=== PATIENT | female | born 1950 | race Caucasian/White ===

== ENCOUNTER → 2016-09-23 | Outpatient (CLI) | payer MEDICARE ==
--- NOTE | 2016-09-23 10:43 | WWHP ---
DATE OF SERVICE: 09/23/2016 CHIEF COMPLAINT: The patient is here for her routine gynecologic exam and mammogram. HPI: This is a 66-year-old G0 with an LMP of 1993. The patient states it has been about 4 years since her last pelvic exam and mammogram. She is without gynecologic complaints and denies any postmenopausal bleeding. PAST MEDICAL HISTORY: Coronary artery disease, chronic hypertension, type 2 diabetes, elevated cholesterol and hypothyroidism. Dr. Stevenson is her primary care physician. MEDICATIONS: 1. Clopidogrel 75 mg daily. 2. Lisinopril 10 mg b.i.d. 3. Metoprolol 25 mg b.i.d. 4. Metformin 1000 mg b.i.d. 5. Glimepiride 2 mg b.i.d. 6. Levothyroxine 75 mcg daily. 7. Atorvastatin 80 mg q.h.s. Allergies to PENICILLIN, which caused a rash. PAST SURGICAL HISTORY: Thyroidectomy 2012, cardiac, stent placement in 2014, cataract surgery 2011, colonoscopy 2004, tonsillectomy at age 21. 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 SOCIAL HISTORY: She quit smoking in her 40s. She has 0 to 1 alcoholic drink per month and denies drug use. 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 FAMILY HISTORY: Sister was diagnosed with breast cancer at age 62 and she also had an DE. Mother and brother have diabetes. Brother had an DE. REVIEW OF SYSTEMS: Weight has been stable. RESPIRATORY: She is getting over a cold. She denies cardiac or GI problems. She also denies maltreatment or falling. : She denies any significant problems with urinary leakage. PHYSICAL EXAM: Blood pressure 137/81. Height 5 feet 2 inches. Weight 162 pounds. Temperature 97.5, pulse 80. This is a well-developed, well-nourished white female who is alert and oriented x3 in no acute distress. HEENT is within normal limits. NECK: Supple without mass or thyromegaly. CHEST AND LUNGS: Clear to auscultation. HEART: Regular rate and rhythm. Breasts are without mass or discharge. Axillary exam is negative for adenopathy. BACK: Negative for CVA tenderness. ABDOMEN: Soft, nontender, without palpable masses. PELVIC EXAM: External genitalia reveals mild to moderate atrophy without lesions. Cervix and vagina reveal moderate atrophy without lesions. There is no unusual discharge. There is no evidence of prolapse. The uterus is midposition, nongravid size and nontender. There are no palpable adnexal masses or tenderness. Rectovaginal exam is negative for mass or tenderness and is negative for occult blood. EXTREMITIES: Nontender. IMPRESSION: 1. A 66-year-old menopausal female with normal gynecologic exam. 2. Family history of breast cancer. PLAN: 1. Pap smear was performed. 2. Self breast examination was discussed with the patient. 3. Mammogram will be done today. I have stressed the importance of yearly mammograms especially with her family history. 4. Screening colonoscopy was recommended and she states she will see Dr. Giles for this. 5. Osteoporosis prevention was discussed. I have recommended bone density screening since her last one was in 2003, which was normal. She states she would like to do this next year. 6. The patient is declining flu shots. 7. She will return in one year.
--- NOTE | 2016-09-24 11:13 | MM ---
Reason for exam: screening (asymptomatic). Last mammogram was performed 4 years ago. History: Patient is postmenopausal and is nulliparous. Took hormonal contraceptives for 1 year 10 months. Took estrogen for 1 year. Physical Findings: A clinical breast exam by your physician is recommended on an annual basis and results should be correlated with mammographic findings. MG Screening Mammo w CAD Bilateral CC and MLO view(s) were taken. Prior study comparison: September 13, 2012, bilateral digital screening mammo w/CAD. June 11, 2009, bilateral digital screening mammogram. There are scattered fibroglandular densities. No significant changes when compared with prior studies. ASSESSMENT: Benign, BI-RAD 2 RECOMMENDATION: Routine screening mammogram of both breasts in 1 year.
== END | disposition home or self-care (01) ==
LOC: WWCWWP 07:57
PROVIDERS: ATTEND Obstetrics & Gynecology
DX: Z12.31 Encounter for screening mammogram for malignant neoplasm of breast (principal)

== ENCOUNTER → 2016-12-29 | Outpatient (CLI) | payer MEDICARE ==
[2016-12-29 10:45] LABS: ALT 37 U/L (9-52); AST 21 U/L (14-36); Alkaline Phosphatase 72 U/L (38-126); Anion Gap 9 mmol/L; Blood Urea Nitrogen 19 mg/dL (7-17); Calcium 9.1 mg/dL (8.4-10.2); Carbon Dioxide 29 mmol/L (22-30); Chloride 103 mmol/L (98-107); Cholesterol 134 mg/dL (<200); Glucose 213 mg/dL (74-99); HDL Cholesterol 37 mg/dL (40-60); Non-African American GFR(MDRD) >60 (>60 ml/min/1.73 sqM); Potassium 4.5 mmol/L (3.5-5.1); Sodium 141 mmol/L (137-145); Total Bilirubin 0.8 mg/dL (0.2-1.3); Total Protein 6.4 g/dL (6.3-8.2); Triglycerides 160 mg/dL (<150)
[2016-12-29 11:45] LABS: Hemoglobin A1C 7.8 % (4.2-6.1)
== END | disposition home or self-care (01) ==
LOC: LABWHC1 08:01
PROVIDERS: ATTEND Internal Medicine Interventional Cardiology
DX: E78.2 Mixed hyperlipidemia (principal); E03.9 Hypothyroidism, unspecified; E11.9 Type 2 diabetes mellitus without complications
CPT/HCPCS: 36415; 80053; 80061; 83036; 84439; 84443

== ENCOUNTER → 2018-04-16 | Outpatient (CLI) | payer MEDICARE ==
[2018-04-16 09:37] LABS: Appearance,Urine Cloudy (Clear); Bacteria,Urine Rare /hpf; Bilirubin,Urine Negative (Negative); Blood,Urine Negative (Negative); Color,Urine Yellow; Glucose,Urine (UA) Trace (Negative); Ketones,Urine Negative (Negative); Leukocyte Esterase,Urine Moderate (Negative); Mucus,Urine Occasional /hpf; Nitrite,Urine Negative (Negative); Protein,Urine Trace (Negative); RBC,Urine 4 /hpf (0-5); Specific Gravity,Urine 1.022 (1.001-1.035); Squamous Epithelial Cell,Urine 4 /hpf (0-4); Urobilinogen,Urine <2.0 mg/dL (<2.0); WBC,Urine 8 /hpf (0-5)
[2018-04-16 09:52] LABS: Albumin 3.9 g/dL (3.5-5.0); Calcium 8.9 mg/dL (8.4-10.2); Potassium 4.1 mmol/L (3.5-5.1); Total Bilirubin 0.7 mg/dL (0.2-1.3); Total Protein 6.4 g/dL (6.3-8.2)
[2018-04-16 17:46] LABS: Hemoglobin A1C 9.9 % (4.0-6.0)
== END | disposition home or self-care (01) ==
LOC: LABWHC1 09:06
PROVIDERS: ATTEND Internal Medicine
DX: E11.9 Type 2 diabetes mellitus without complications (principal); I10 Essential (primary) hypertension; E78.2 Mixed hyperlipidemia
CPT/HCPCS: 36415; 80053; 80061; 81001; 82043; 82570; 83036

== ENCOUNTER → 2018-05-16 | Outpatient (CLI) | payer MEDICARE ==
[2018-05-16 09:15] LABS: ALT 33 U/L (9-52); AST 24 U/L (14-36); Cholesterol 146 mg/dL (<200); HDL Cholesterol 37 mg/dL (40-60); LDL Cholesterol,Calculated 81 mg/dL (0-99); Triglycerides 139 mg/dL (<150)
== END | disposition home or self-care (01) ==
LOC: LABWHC1 07:45
PROVIDERS: ATTEND Internal Medicine Interventional Cardiology
DX: E78.2 Mixed hyperlipidemia (principal)
CPT/HCPCS: 36415; 80061; 84450; 84460

== ENCOUNTER 2018-05-25 06:32 | Day surgery (SDC) | payer MEDICARE ==
[2018-05-24 08:26] VITALS: BMI 29.2
[~2018-05-25 06:32] MED LIST: ALPRAZolam 0.25 MG TAB PO PRN; ALPRAZolam 0.5 MG TAB PO PRN; NITROGLYCERIN SL TABS 0.4 MG TAB SUBLINGUAL PRN; SODIUM CHLORIDE 0.9% 1,000 ML in EMPTY BAG 1 BAG IV ONE
[2018-05-25] MEDS ORDERED: ASPIRIN 325 MG TAB PO ONE (07:00)
[2018-05-25 07:15] VITALS: RESP 16; TEMP 98.3
[2018-05-25] MEDS ORDERED: VERAPAMIL 2.5 MG/ML 2 ML AMP ONE (07:18)
[2018-05-25] MEDS ORDERED: LIDOCAINE 1% INJ 10MG/ML (20 ML MDV) ONE (07:18)
[2018-05-25] MEDS ORDERED: fentaNYL (PF) 50 MCG/ML 2 ML AMP ONE (07:18)
[2018-05-25 07:24] LABS: Glucose,Whole Blood 291 mg/dL (75-99)
[2018-05-25] MEDS ORDERED: amLODIPine 5 MG TAB PO STA (07:26)
[2018-05-25] MEDS ORDERED: INSULIN ASPART 100 UNIT/ML 1 ML 10 ML VIAL SQ SCH (07:30)
[2018-05-25 07:35] LABS: Basophils # (A) 0.1 k/uL (0-0.2); Basophils % (A) 1 %; Eosinophils # (A) 0.3 k/uL (0-0.7); Eosinophils % (A) 4 %; HCT 42.8 % (34.0-46.0); HGB 14.5 gm/dL (11.4-16.0); Lymphocytes # (A) 2.4 k/uL (1.0-4.8); Lymphocytes % (A) 30 %; MCH 30.4 pg (25.0-35.0); MCHC 33.8 g/dL (31.0-37.0); Mean Platelet Volume 8.5; Monocytes # (A) 0.5 k/uL (0-1.0); Monocytes % (A) 6 %; Neutrophils # (A) 4.4 k/uL (1.3-7.7); Neutrophils % (A) 56 %; Platelet Count 298 k/uL (150-450); RBC 4.76 m/uL (3.80-5.40); RDW 12.7 % (11.5-15.5); WBC 7.8 k/uL (3.8-10.6)
[2018-05-25] MEDS ORDERED: amLODIPine 5 MG TAB PO ONE (07:40)
[2018-05-25 07:42] LABS: Anion Gap 8 mmol/L; Blood Urea Nitrogen 17 mg/dL (7-17); Carbon Dioxide 28 mmol/L (22-30); Chloride 102 mmol/L (98-107); Glucose 295 mg/dL (74-99); Potassium 4.4 mmol/L (3.5-5.1); Sodium 138 mmol/L (137-145)
[2018-05-25] MEDS ORDERED: fentaNYL (PF) 50 MCG/ML 2 ML AMP IVP ONE (07:49)
[2018-05-25] MEDS ORDERED: LIDOCAINE 1% INJ 10MG/ML (20 ML MDV) SQ ONE (07:52)
[2018-05-25] MEDS ORDERED: MIDAZOLAM 2 MG/2 ML VIAL ONE (07:54)
[2018-05-25] MEDS ORDERED: HEPARIN SODIUM 1,000 UN/ML (10ML VL) ONE (07:54)
[2018-05-25] MEDS: VERAPAMIL SYRINGE (5 MG/10 ML) INTRAARTER ONE ×2 (07:54→08:07)
[2018-05-25] MEDS ORDERED: MIDAZOLAM 2 MG/2 ML VIAL IVP ONE (07:56)
[2018-05-25] MEDS ORDERED: NITROGLYCERIN SL TABS 0.4 MG TAB SUBLINGUAL ONE ×2 (07:57→08:00)
[2018-05-25] MEDS ORDERED: IOPAMIDOL-370 125ML BTL INJ ONE (08:13)
[2018-05-25] MEDS ORDERED: RX INFO: IV CONTRAST WAS GIVEN 1 EACH MISC MISCELLANE PRN (08:32)
[2018-05-25] MEDS ORDERED: SODIUM CHLORIDE 0.9% 1,000 ML IV SCH (08:45)
--- NOTE | 2018-05-25 08:51 | CC ---
CARDIAC CATHETERIZATION REPORT Ms. Daniels is a 68-year-old female with known history of hypertension, hyperlipidemia, diabetes mellitus, history of coronary artery disease status post stenting of the right coronary artery. At that time, had a severe cardiomyopathy who recently had an abnormal myocardial perfusion imaging. In view of that, recommendation made regarding cardiac catheterization. The procedures, risks and complication were discussed with the patient who is in full understanding and agreement. 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 Using Xylocaine anesthesia and Seldinger technique, a 6-Urdu sheath was introduced in the right radial artery. Selective right and left angiography performed using 5-Urdu 3.5 bend right and left Tj catheter. Multiple views of the coronary artery including hemiaxial views were obtained. Following that, a 4-Urdu tight pigtail catheter was introduced into the left ventricle and a 30 degree PLAZA view of the left ventricle was obtained. Following that, catheter and sheaths were removed. Hemostasis was obtained with deployment of a TR band. There was no immediate complication. Patient was returned to her room in stable condition. Of note, patient received 4000 units of intravenous heparin as well as intra-arterial verapamil. FINDINGS: LEFT MAIN: This is a large-sized vessel, bifurcating into left circumflex, left anterior descending artery. Left main coronary artery is without any obstructive coronary artery disease. LEFT ANTERIOR DESCENDING ARTERY: This is a large-sized vessel reaching toward the apex with a wraparound apex segment, giving rise to a moderately-sized diagonal branch. After the takeoff of the diagonal branch, there is a 20% plaque. The rest of the vessel has no high-grade stenosis. LEFT CIRCUMFLEX: This is a nondominant vessel, giving rise to 2 obtuse marginal branches, the first one is large in caliber. The left circumflex as well as branches have no evidence of obstructive coronary artery disease. RIGHT CORONARY ARTERY: This is a large dominant vessel, bifurcating into PDA and posterolateral segment and branches. The stented segment is patent with no evidence of free stenosis. LEFT VENTRICULOGRAM: Left ventriculogram is performed in 30 degree PLAZA view and revealed mild mid inferior wall hypokinesis. Ejection fraction is 50%. There was no significant mitral regurgitation. HEMODYNAMICS: There was no gradient across the aortic valve. The left ventricle end- diastolic pressure was 16 to 18 mmHg. CONCLUSION: 1. Mild intimal disease involving the mid left anterior descending artery. 2. Minimally impaired left ventricular systolic function. RECOMMENDATION: In view of finding anatomy, I recommend to continue medical therapy with aggressive coronary risk modifications being initiated. Those findings and recommendation were discussed with the patient and she is in full understanding and agreement. Duration of procedure is 25 minutes. MADELINE / ZULAY: [id number] /
[2018-05-25] MEDS ORDERED: LEVOTHYROXINE 75 MCG TAB PO SCH (09:00)
[2018-05-25] MEDS ORDERED: MULTIVITAMINS, THERA 1 EACH TAB PO SCH (09:00)
[2018-05-25] MEDS ORDERED: LISINOPRIL 5 MG TAB PO SCH (09:00)
[2018-05-25] MEDS ORDERED: ASPIRIN 325 MG TAB PO SCH (09:00)
[2018-05-25] MEDS ORDERED: NON-FORMULARY DRUG (Krill Oil [Krill Oil] 500 MG) PO SCH (09:00)
[2018-05-25] MEDS ORDERED: METOPROLOL TARTRATE 25 MG TAB PO SCH (09:00)
[2018-05-25 12:38] VITALS: BP 142/75; PULSE 60
[2018-05-25] MEDS ORDERED: ATORVASTATIN 80 MG TAB PO SCH (21:00)
== END 2018-05-25 13:35 | disposition home or self-care (01) ==
LOC: CATHCVL 06:32
PROVIDERS: ATTEND Internal Medicine Interventional Cardiology
DX: I25.10 Atherosclerotic heart disease of native coronary artery without angina pectoris (principal); E11.9 Type 2 diabetes mellitus without complications; I10 Essential (primary) hypertension; E78.2 Mixed hyperlipidemia; Z95.5 Presence of coronary angioplasty implant and graft; Z82.49 Family history of ischemic heart disease and other diseases of the circulatory system; Z88.0 Allergy status to penicillin; Z79.82 Long term (current) use of aspirin; Z79.899 Other long term (current) drug therapy; Z79.84 Long term (current) use of oral hypoglycemic drugs; Z79.890 Hormone replacement therapy; Z87.891 Personal history of nicotine dependence
CPT/HCPCS: 93458; 80048; 85025; J2250; J2001; J3010; J1644; Q9967

== ENCOUNTER → 2018-10-29 | Outpatient (CLI) | payer MEDICARE ==
[2018-10-29 16:30] LABS: Albumin 3.9 g/dL (3.80-4.90); Albumin/Globulin Ratio 1.95 (1.60-3.17); Anion Gap 7.7 mmol/L (4.00-12.00); Calcium 9.1 mg/dL (8.7-10.3); Carbon Dioxide 30.3 mmol/L (21.6-31.8); LDL Cholesterol,Calculated 100.2 mg/dL (0.0-131.0); Potassium 4.5 mmol/L (3.5-5.5); Total Bilirubin 0.8 mg/dL (0.2-1.2); Total Protein 5.9 g/dL (6.2-8.2); VLDL Calculation 22.8 mg/dL (5.00-40.00)
[2018-10-29 17:56] LABS: Hemoglobin A1C 10.6 % (4.0-6.0)
== END ==
LOC: LABWHC1 09:04
PROVIDERS: ATTEND Internal Medicine
DX: E11.9 Type 2 diabetes mellitus without complications (principal); E78.5 Hyperlipidemia, unspecified; E03.9 Hypothyroidism, unspecified; E78.2 Mixed hyperlipidemia
CPT/HCPCS: 36415; 80053; 80061; 82043; 82570; 83036; 84439; 84443

== ENCOUNTER → 2019-04-11 | Outpatient (CLI) | payer MEDICARE ==
[2019-04-11 09:24] LABS: HCT 42.6 % (34.0-46.0); HGB 14.7 gm/dL (11.4-16.0); MCH 31.2 pg (25.0-35.0); MCHC 34.5 g/dL (31.0-37.0); MCV 90.4 fL (80.0-100.0); Mean Platelet Volume 7.9; Platelet Count 326 k/uL (150-450); RBC 4.71 m/uL (3.80-5.40); RDW 12.9 % (11.5-15.5); WBC 8.4 k/uL (3.8-10.6)
[2019-04-11 09:29] LABS: Appearance,Urine Clear (Clear); Bacteria,Urine Occasional /hpf; Bilirubin,Urine Negative (Negative); Blood,Urine Negative (Negative); Color,Urine Yellow; Glucose,Urine (UA) Trace (Negative); Ketones,Urine Negative (Negative); Leukocyte Esterase,Urine Moderate (Negative); Mucus,Urine Rare /hpf; Nitrite,Urine Negative (Negative); Protein,Urine Negative (Negative); RBC,Urine 1 /hpf (0-5); Specific Gravity,Urine 1.007 (1.001-1.035); Squamous Epithelial Cell,Urine 1 /hpf (0-4); Urobilinogen,Urine <2.0 mg/dL (<2.0); WBC,Urine 6 /hpf (0-5)
[2019-04-11 18:30] LABS: African American GFR (CKD) 75.6 (60.0-200.0); Albumin 4.2 g/dL (3.80-4.90); Albumin/Globulin Ratio 2.47 (1.60-3.17); Anion Gap 10.2 mmol/L (4.00-12.00); BUN/Creat Ratio 16.67 Ratio (12.00-20.00); Carbon Dioxide 28.8 mmol/L (21.6-31.8); Chol/HDL Ratio 2.55; Globulin 1.7 g/dL (1.6-3.3); Non-African American GFR(CKD) 65.2 (60.0-200.0); Potassium 4.9 mmol/L (3.5-5.5); Total Bilirubin 0.9 mg/dL (0.2-1.2); Total Protein 5.9 g/dL (6.2-8.2)
[2019-04-11 18:36] LABS: T4, Free (Free Thyroxine) 1.4 ng/dL (0.80-1.80)
[2019-04-11 19:06] LABS: Hemoglobin A1C 9.7 % (4.0-6.0)
[2019-04-11 21:03] LABS: Urine Creatinine 35.7 mg/dL
== END | disposition home or self-care (01) ==
LOC: LABWHC1 08:40
PROVIDERS: ATTEND Internal Medicine
DX: E78.2 Mixed hyperlipidemia (principal); E11.9 Type 2 diabetes mellitus without complications; E03.9 Hypothyroidism, unspecified
CPT/HCPCS: 36415; 80053; 80061; 81001; 82043; 82570; 83036; 84439; 84443; 85027

== ENCOUNTER → 2019-05-02 | Outpatient (CLI) | payer MEDICARE ==
--- NOTE | 2019-05-02 16:12 | BD ---
EXAMINATION TYPE: Axial Bone Density DATE OF EXAM: 05/02/2019 COMPARISON: 2003 CLINICAL HISTORY: Z 78.0 Height: 5 FT 1 1/4 IN Weight: 159 FRAX RISK QUESTIONS: Secondary Osteoporosis: 3. Menopause before 45: AGE 44 RISK FACTORS HISTORY OF: Active: YES Postmenopausal woman: AGE 44 MEDICATIONS: Thyroid Medications: YES Which medication: LEVOTHYROXINE How Lon YEARS Additional Medications: LEVOTHYROXINE, BLOOD PRESSURE MEDS ,CHOLESTEROL MEDS, Additional History: THYROID REMOVED FOR GOITER, HEART STENT EXAM MEASUREMENTS: Bone mineral densitometry was performed using the Quart[employer] System. Bone mineral density as measured about the Lumbar spine is: ----- L1-L4(G/cm2): 1.351 T Score Values are as follows: ----- L2: 0.7 ----- L3: 2.4 ----- L4: 2.4 ----- L1-L4: 1.4 Bone mineral density has: INCREASED 4.0 % since study of: 2003 Bone mineral density about the R hip (g/cm2): 0.853 Bone mineral density about the L hip (g/cm2): 0.869 T Score values are as follows: -----R Neck: -1.3 -----L Neck: -1.2 -----R Total: -0.5 -----L Total: -0.4 Bone mineral density has: DECREASED -12.4 % since study of: 2003 IMPRESSION: Osteopenia (T Score between -2.5 and -1). There is slightly increased risk of fracture and the patient may be considered for treatment. Re-Screen 2-5 years. NOTE: T-SCORE=SD OF THE YOUNG ADULT MEAN.
--- NOTE | 2019-05-04 09:30 | MM ---
Reason for exam: screening (asymptomatic). Last mammogram was performed 2 years and 7 months ago. History: Patient is postmenopausal and is nulliparous. Family history of breast cancer in sister at age 61. Took hormonal contraceptives for 1 year 10 months. Took estrogen for 1 year. Physical Findings: A clinical breast exam by your physician is recommended on an annual basis and results should be correlated with mammographic findings. MG 3D Screening Mammo W/Cad Bilateral CC and MLO view(s) were taken. Prior study comparison: September 23, 2016, bilateral MG screening mammo w CAD. The breast tissue is heterogeneously dense. This may lower the sensitivity of mammography. There is chronic nodularity in the left breast. No significant changes when compared with prior studies. ASSESSMENT: Benign, BI-RAD 2 RECOMMENDATION: Routine screening mammogram of both breasts in 1 year.
== END | disposition home or self-care (01) ==
LOC: RADMAMWWP 14:39
PROVIDERS: ATTEND Internal Medicine
DX: Z12.31 Encounter for screening mammogram for malignant neoplasm of breast (principal); M85.80 Other specified disorders of bone density and structure, unspecified site; Z78.0 Asymptomatic menopausal state
CPT/HCPCS: 77063; 77067; 77080

== ENCOUNTER → 2021-06-11 | Outpatient (CLI) | payer MEDICARE ==
[2021-06-11 11:28] VITALS: BP 199/79; PULSE 74; RESP 18; TEMP 98.2
--- NOTE | 2021-06-11 12:43 | P.HPOB ---
History of Present Illness H&P Date: 06/11/21 Chief Complaint: The patient is here for her routine gynecologic exam and ma mmogram. This is a 71-year-old G0 with an LMP of 1993. The patient is without gynecologic complaints and denies any postmenopausal bleeding. Review of Systems She has lost about 8 pounds over the past 4 years. She denies respiratory, cardiac and G.I. problems. She denies maltreatment or problems with falling. 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 History of Any Multi-Drug Resistant Organisms: None Reported Past Surgical History: Adenoidectomy, Tonsillectomy Additional Past Surgical History / Comment(s): THROIDECTOMY, DG CATARACTS SX , LASIK LT EYE. Cardiac stent placed in 2014. COLONOSCOPY 2018(next after 10yr) Past Anesthesia/Blood Transfusion Reactions: Previous Problems w/ Anesthesia Additional Past Anesthesia/Blood Transfusion Reaction / Comment(s): TOOK LONG TIME TO WAKE UP Past Psychological History: No Psychological Hx Reported Smoking Status: Never smoker Past Alcohol Use History: Rare (1 or 2 per year) Additional Past Alcohol Use History / Comment(s): STARTED SMOKING AT AGE 18 QUIT AGE 44 USED TO SMOKE 1 PPD Past Drug Use History: None Reported Additional History: She has been a since 2019. 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 - Past Family History Father Family Medical History: Unable to Obtain Mother Family Medical History: Congestive Heart Failure (CHF), Myocardial Infarction ([place]) Sister(s) Family Medical History: Cancer Additional Family Medical History / Comment(s): Breast cancer. Brother(s) Family Medical History: Myocardial Infarction ([place]) Medications and Allergies Home Medications Medication Instructions Recorded Confirmed Type Krill Oil 500 mg PO DAILY 09/17/14 06/11/21 History Levothyroxine Sodium [Synthroid] 75 mcg PO DAILY 09/17/14 06/11/21 History Multivitamins, Thera [Multivitamin] 1 each PO DAILY 09/17/14 06/11/21 History metFORMIN HCL [Glucophage] 1,000 mg PO BID 09/17/14 06/11/21 History Aspirin 325 mg PO DAILY #100 tab 09/20/14 06/11/21 Rx Atorvastatin [Lipitor] 80 mg PO HS #30 tab 09/20/14 06/11/21 Rx Metoprolol Tartrate [Lopressor] 25 mg PO BID #60 tab 09/20/14 06/11/21 Rx lisinopriL [Zestril] 5 mg PO BID 05/25/18 06/11/21 History Ezetimibe [Zetia] 10 mg PO DAILY 06/11/21 06/11/21 History Glimepiride [Amaryl] 2 mg PO AC-BRKFST 06/11/21 06/11/21 History Ultra Eye Support 1 tab PO DAILY 06/11/21 06/11/21 History Allergies Allergy/AdvReac Type Severity Reaction Status Date / Time Penicillins Allergy Rash/Hives Verified 06/11/21 11:28 Exam Vital Signs Temp Pulse Resp BP Pulse Ox 06/11/21 11:22 98.2 F 74 18 199/79 98 Intake and Output 06/10/21 06/11/21 06/11/21 22:59 06:59 14:59 Other: Weight 69.853 kg Repeat blood pressure in the left arm 158/78. Height 5 foot 1-1/2 inch, weight 154 pounds, BMI 28.6. This is a well-developed well-nourished white female who is alert and oriented times 3 in no acute distress. HEENT: Within normal limits. NECK: Supple without mass or thyromegaly. CHEST AND LUNGS: Clear to auscultation. HEART: Regular rate and rhythm. BREASTS: Are without mass or discharge. AXILLARY EXAM: Negative for adenopathy. BACK: Negative for CVA tenderness. ABDOMEN: Soft, nontender, without palpable masses. PELVIC EXAM: Normal external genitalia with moderate atrophy. Cervix and vagina appear normal with moderate atrophy. There is no unusual discharge. There is no evidence of prolapse. The uterus is midposition, nongravid size and nontender. There are no palpable adnexal masses or tenderness. RECTAL EXAM: Rectovaginal exam is negative for mass or tenderness and is negative for occult blood. EXTREMITIES: Nontender. IMPRESSION: 1. 71-year-old menopausal female with normal gynecologic exam. 2. Elevated blood pressure with history of chronic hypertension. PLAN: 1. Pap smear was performed. If this is negative, we will plan on discontinuing Pap smears. This would give us 3 negative Pap smears in the last 10 years. She has no history of cervical neoplasia. 2. Self breast awareness was discussed with the patient. We have also discussed symptoms associated with inflammatory breast cancer. 3. Screening mammogram will be done today. 4. Her elevated blood pressure was discussed with the patient. I have recommended that she check her own blood pressure on a regular basis at home. She will keep a log for her PCP. She will follow up with her PCP for blood pressure elevations. 5. Osteoporosis prevention was discussed. I have stressed the importance of adequate calcium, vitamin D and regular exercise. Recommended amounts of calcium and vitamin D were also discussed. It has been more than 5 years since her last bone density test. I have recommended that she redo the bone density testing and the order slip was given to the patient for this. 6. She did complete Covid vaccination series and plans to get a booster for this. She did receive her flu shot recently. 7. The patient was advised to return in 1-2 years for her well woman examination.
== END ==
LOC: WWCWWP 11:10
PROVIDERS: ATTEND Obstetrics & Gynecology
DX: Z12.31 Encounter for screening mammogram for malignant neoplasm of breast (principal); Z01.419 Encounter for gynecological examination (general) (routine) without abnormal findings; E03.9 Hypothyroidism, unspecified; E78.5 Hyperlipidemia, unspecified; I10 Essential (primary) hypertension; I25.10 Atherosclerotic heart disease of native coronary artery without angina pectoris; E11.9 Type 2 diabetes mellitus without complications; Z79.82 Long term (current) use of aspirin; Z79.84 Long term (current) use of oral hypoglycemic drugs; Z88.0 Allergy status to penicillin; Z79.899 Other long term (current) drug therapy
CPT/HCPCS: 77063; 77067

== ENCOUNTER → 2022-06-16 | Outpatient (CLI) | payer MEDICARE ==
[2022-06-16 14:46] VITALS: PULSE 67; RESP 17; TEMP 97.8
[2022-06-16 14:51] VITALS: BP 210/91
--- NOTE | 2022-06-16 15:22 | P.HPOB ---
History of Present Illness H&P Date: 06/16/22 Chief Complaint: The patient is here for her routine gynecologic exam and ma mmogram. This is a 72-year-old G0 with an LMP of 1993. The patient is without gynecologic complaints and denies any postmenopausal bleeding. Review of Systems The patient has lost 3 pounds over the last year. She denies respiratory, cardiac, or G.I. problems. 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 History of Any Multi-Drug Resistant Organisms: None Reported Past Surgical History: Adenoidectomy, Tonsillectomy Additional Past Surgical History / Comment(s): THROIDECTOMY, DG CATARACTS SX , LASIK LT EYE. Cardiac stent placed in 2014. COLONOSCOPY 2018(next after 10yr) Past Anesthesia/Blood Transfusion Reactions: Previous Problems w/ Anesthesia Additional Past Anesthesia/Blood Transfusion Reaction / Comment(s): TOOK LONG TIME TO WAKE UP Past Psychological History: No Psychological Hx Reported Smoking Status: Former smoker Past Alcohol Use History: Rare (0-2 per year) Additional Past Alcohol Use History / Comment(s): STARTED SMOKING AT AGE 18 QUIT AGE 44 USED TO SMOKE 1 PPD Past Drug Use History: None Reported Additional History: She has been a since 2019. She is not sexually active. 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 - Past Family History Father Family Medical History: Unable to Obtain Mother Family Medical History: Congestive Heart Failure (CHF), Myocardial Infarction ([place]) Sister(s) Family Medical History: Cancer Additional Family Medical History / Comment(s): Breast cancer. Brother(s) Family Medical History: Myocardial Infarction ([place]) Medications and Allergies Home Medications Medication Instructions Recorded Confirmed Type Krill Oil 500 mg PO DAILY 09/17/14 06/16/22 History Levothyroxine Sodium [Synthroid] 75 mcg PO DAILY 09/17/14 06/16/22 History Multivitamins, Thera [Multivitamin] 1 each PO DAILY 09/17/14 06/16/22 History metFORMIN HCL [Glucophage] 1,000 mg PO BID 09/17/14 06/16/22 History Aspirin 325 mg PO DAILY #100 tab 09/20/14 06/16/22 Rx Atorvastatin [Lipitor] 80 mg PO HS #30 tab 09/20/14 06/16/22 Rx Metoprolol Tartrate [Lopressor] 25 mg PO BID #60 tab 09/20/14 06/16/22 Rx lisinopriL [Zestril] 5 mg PO BID 05/25/18 06/16/22 History Ezetimibe [Zetia] 10 mg PO DAILY 06/11/21 06/16/22 History Glimepiride [Amaryl] 2 mg PO AC-BRKFST 06/11/21 06/16/22 History Ultra Eye Support 1 tab PO DAILY 06/11/21 06/16/22 History Allergies Allergy/AdvReac Type Severity Reaction Status Date / Time Penicillins Allergy Rash/Hives Verified 06/16/22 14:38 Exam Vital Signs Temp Pulse Resp BP Pulse Ox 06/16/22 14:51 210/91 06/16/22 14:43 97.8 F 67 17 96 Intake and Output 06/16/22 06/16/22 06/16/22 06:59 14:59 22:59 Other: Weight 68.492 kg Height 5 foot 1 inch, weight 151 pounds, BMI 28.5. Repeat blood pressure from the left arm a 176/90. This is a well-developed well-nourished white female who is alert and oriented times 3 in no acute distress. HEENT: Within normal limits. NECK: Supple without mass or thyromegaly. CHEST AND LUNGS: Clear to auscultation. HEART: Regular rate and rhythm. BREASTS: Are without mass or discharge. AXILLARY EXAM: Negative for adenopathy. BACK: Negative for CVA tenderness. ABDOMEN: Soft, nontender, without palpable masses. PELVIC EXAM: Normal external genitalia with moderate atrophy. Cervix and vagina appear normal with moderate atrophy. There is no unusual discharge. There is no evidence of prolapse. The uterus is midposition, nongravid size and nontender. There are no palpable adnexal masses or tenderness. RECTAL EXAM: Rectovaginal exam is negative for mass or tenderness and is negative for occult blood. EXTREMITIES: Nontender. IMPRESSION: 1. 72-year-old menopausal female with normal gynecologic exam. 2. Elevated blood pressure with history of chronic hypertension. PLAN: 1. Pap smears have been discontinued. 2. Self breast awareness was discussed with the patient. We have also discussed symptoms associated with inflammatory breast cancer. 3. Screening mammogram will be done today. 4. Her significantly elevated blood pressure was discussed with the patient. She understands that uncontrolled hypertension in significantly increased risk for heart attack and stroke. I have recommended that she follow-up with her PCP and perinatal specialist regarding blood pressure elevations. Have also recommended regular pressure checks at home since she does have a blood pressure cuff. 5. Osteoporosis prevention was discussed. I have stressed the importance of adequate calcium, vitamin D and regular exercise. Recommended amounts of calcium and vitamin D were also discussed. Bone density test will be done today. 6. She has completed her Covid vaccination series and has received 2 boosters. 7. The patient was advised to return in 1-2 years for her well woman examination.
--- NOTE | 2022-06-17 16:05 | BD ---
EXAMINATION TYPE: Axial Bone Density DATE OF EXAM: 06/16/2022 COMPARISON: 05/02/2019 CLINICAL HISTORY: 72 years year old Female. ICD-10 CODE: Z78.0 POST-MENOPAUSAL W/O HRT Height: 61 Weight: 150 FRAX RISK QUESTIONS: Secondary Osteoporosis: 3. Menopause before 45: YES 44 RISK FACTORS HISTORY OF: Active: YES Postmenopausal woman: YES MEDICATIONS: Thyroid Medications: Which medication: Levothyroxine How Lon YRS Additional Medications: YES METFORMIN,ATORVASTATIN,GLIMEPIRIDE,EZETIMIBE,ASPIRIN 81MG, HBP, MULTI VIT EXAM MEASUREMENTS: Bone mineral densitometry was performed using the [employer] Software System. Bone mineral density as measured about the Lumbar spine is: ----- L1-L4(G/cm2): 1.406 T Score Values are as follows: ----- L1: 0.1 ----- L2: 0.6 ----- L3: 3.2 ----- L4: 3.1 ----- L1-L4: 1.9 Bone mineral density has: Increased 4.3% since study of: 05/02/2019 Bone mineral density about the R hip (g/cm2): 0.821 Bone mineral density about the L hip (g/cm2): 0.834 T Score values are as follows: -----R Neck: -1.6 -----L Neck: -1.5 -----R Total: -0.8 -----L Total: -0.8 Bone mineral density has: Decreased -5.0% since study of: 05/02/2019 FRAX%s: The graph provided illustrates a 10.6 chance for a major osteoporotic fx and a 1.8 chance for the hips probability for fx in 10 years time. IMPRESSION: Osteopenia (T Score between -2.5 and -1). There is slightly increased risk of fracture and the patient may be considered for treatment. Re-Screen 2-5 years. NOTE: T-SCORE=SD OF THE YOUNG ADULT MEAN.
--- NOTE | 2022-06-17 16:58 | MM ---
Reason for Exam: Screening (asymptomatic). Last screening mammogram was performed 12 month(s) ago. Patient History: Menarche at age 11. Patient has no children. Postmenopausal. Patient used Estrogen for 1 year. Hormonal Contraceptives for 1 year, 10 months. Sister had breast cancer, age 61. Risk Values: Sherita 5 year model risk: 3.8%. NCI Lifetime model risk: 9.7%. Prior Study Comparison: 09/23/2016 Bilateral Screening Mammogram, [facility]. 05/02/2019 Bilateral Screening Mammogram, [facility]. 06/11/2021 Bilateral Screening Mammogram, [facility]. Tissue Density: There are scattered fibroglandular densities. Findings: Analyzed By CAD. Pattern appears stable. Some chronic nodularity of the left breast 3:00 middle position. No suspicious groups of microcalcifications, spiculated or lobular masses, architectural distortion or other secondary signs of malignancy are mammographically apparent. Overall Assessment: Benign, BI-RAD 2 Management: Screening Mammogram of both breasts in 1 year. A negative mammogram report should not preclude additional follow up of suspicious palpable abnormalities. Patient should continue monthly self breast exam. A clinical breast exam by your physician is recommended on an annual basis and results should be correlated with mammographic findings. Electronically signed and approved by: Gregory Damon D.O. Radiologis
== END ==
LOC: WWCWWP 14:32
PROVIDERS: ATTEND Obstetrics & Gynecology
DX: Z01.419 Encounter for gynecological examination (general) (routine) without abnormal findings (principal); Z12.31 Encounter for screening mammogram for malignant neoplasm of breast; Z78.0 Asymptomatic menopausal state; I10 Essential (primary) hypertension; Z88.0 Allergy status to penicillin; Z87.891 Personal history of nicotine dependence
CPT/HCPCS: 77063; 77067; 77080

== ENCOUNTER → 2022-11-27 | Outpatient (CLI) | payer MEDICARE ==
[2022-11-27 15:34] LABS: ALT 23 U/L (8-44); AST 20 U/L (13-35); African American GFR (CKD) 72.8 (60.0-200.0); Albumin/Globulin Ratio 1.91 (1.60-3.17); Alkaline Phosphatase 62 U/L (41-126); BUN/Creat Ratio 16.87 Ratio (12.00-20.00); Blood Urea Nitrogen 15.4 mg/dL (9.0-27.0); Calcium 9.3 mg/dL (8.7-10.3); Carbon Dioxide 30.2 mmol/L (20.0-27.5); Chloride 101 mmol/L (96-109); Chol/HDL Ratio 2.52 Ratio; Globulin 2.1 g/dL (1.6-3.3); Glucose 182 mg/dL (70-110); LDL Cholesterol,Calculated 42.5 mg/dL (0.0-131.0); Non-African American GFR(CKD) 62.8 (60.0-200.0); Potassium 4.7 mmol/L (3.5-5.5); Sodium 140 mmol/L (135-145)
[2022-11-27 17:43] LABS: Urine Creatinine 27.3 mg/dL (28.0-217.0)
== END | disposition home or self-care (01) ==
LOC: LABWHC1 09:56
PROVIDERS: ATTEND Family Medicine
DX: I10 Essential (primary) hypertension (principal); E11.9 Type 2 diabetes mellitus without complications; E78.2 Mixed hyperlipidemia
CPT/HCPCS: 36415; 80053; 80061; 82043; 82570; 83036

== ENCOUNTER → 2023-06-19 | Outpatient (CLI) | payer MEDICARE ==
[2023-06-19 13:50] LABS: ALT 17 U/L (8-44); AST 19 U/L (13-35); BUN/Creat Ratio 17.89 Ratio (12.00-20.00); Blood Urea Nitrogen 16.1 mg/dL (9.0-27.0); Calcium 9.6 mg/dL (8.7-10.3); Carbon Dioxide 28.2 mmol/L (21.6-31.8); Chloride 99 mmol/L (96-109); Chol/HDL Ratio 3.45 Ratio; Glucose 145 mg/dL (70-110); LDL Cholesterol,Calculated 54.9 mg/dL (0.0-131.0); Potassium 4.6 mmol/L (3.5-5.5); Sodium 140 mmol/L (135-145)
== END | disposition home or self-care (01) ==
LOC: LABWHC1 08:27
PROVIDERS: ATTEND Family Medicine
DX: Z00.00 Encounter for general adult medical examination without abnormal findings (principal); E78.2 Mixed hyperlipidemia
CPT/HCPCS: 36415; 80048; 80061; 84443; 84450; 84460

== ENCOUNTER → 2023-06-22 | Outpatient (CLI) | payer MEDICARE | END | disposition home or self-care (01) | LOC: LABWHC1 14:59 | PROVIDERS: ATTEND Family Medicine | DX: Z00.00 Encounter for general adult medical examination without abnormal findings (principal) | CPT/HCPCS: 36415; 83036 ==

== ENCOUNTER → 2023-06-22 | Outpatient (CLI) | payer MEDICARE ==
[2023-06-22 08:49] VITALS: BP 192/77; PULSE 79; RESP 16; TEMP 97.9
--- NOTE | 2023-06-22 09:25 | P.HPOB ---
History of Present Illness H&P Date: 06/22/23 Chief Complaint: The patient is here for her routine gynecologic exam and ma mmogram. This is a 73-year-old G0 with an LMP of 1993. The patient is without gynecologic complaints. Review of Systems The patient has lost 6 pounds over the last year. Respiratory: She is getting over some sinus issues with cough. She denies cardiac or GI problems. 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 History of Any Multi-Drug Resistant Organisms: None Reported Past Surgical History: Adenoidectomy, Tonsillectomy Additional Past Surgical History / Comment(s): THROIDECTOMY, DG CATARACTS SX , LASIK LT EYE. Cardiac stent placed in 2014. COLONOSCOPY 2018(next after 10yr) Past Anesthesia/Blood Transfusion Reactions: Previous Problems w/ Anesthesia Additional Past Anesthesia/Blood Transfusion Reaction / Comment(s): TOOK LONG TIME TO WAKE UP Past Psychological History: No Psychological Hx Reported Smoking Status: Former smoker Past Alcohol Use History: Rare (0-2 drinks per year.) Additional Past Alcohol Use History / Comment(s): STARTED SMOKING AT AGE 18 QUIT AGE 44 USED TO SMOKE 1 PPD Past Drug Use History: None Reported Additional History: She has been a since 2019. She is not sexually active. 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 - Past Family History Father Family Medical History: Unable to Obtain Mother Family Medical History: Congestive Heart Failure (CHF), Myocardial Infarction ([place]) Sister(s) Family Medical History: Cancer Additional Family Medical History / Comment(s): Breast cancer. Brother(s) Family Medical History: Myocardial Infarction ([place]) Medications and Allergies Home Medications Medication Instructions Recorded Confirmed Type Krill Oil 500 mg PO DAILY 09/17/14 06/22/23 History Levothyroxine Sodium [Synthroid] 75 mcg PO DAILY 09/17/14 06/22/23 History Multivitamins, Thera [Multivitamin] 1 each PO DAILY 09/17/14 06/22/23 History metFORMIN HCL [Glucophage] 1,000 mg PO BID 09/17/14 06/22/23 History Aspirin 325 mg PO DAILY #100 tab 09/20/14 06/22/23 Rx Atorvastatin [Lipitor] 80 mg PO HS #30 tab 09/20/14 06/22/23 Rx Metoprolol Tartrate [Lopressor] 25 mg PO BID #60 tab 09/20/14 06/22/23 Rx lisinopriL [Zestril] 20 mg PO BID 05/25/18 06/22/23 History Ezetimibe [Zetia] 10 mg PO DAILY 06/11/21 06/22/23 History Glimepiride [Amaryl] 2 mg PO AC-BRKFST 06/11/21 06/22/23 History Ultra Eye Support 1 tab PO DAILY 06/11/21 06/22/23 History Ascorbic Acid [Vitamin C] 500 mg PO DAILY 06/22/23 06/22/23 History Cholecalciferol [Vitamin D3 (25 50 mcg PO DAILY 06/22/23 06/22/23 History Mcg = 1000 Iu)] Allergies Allergy/AdvReac Type Severity Reaction Status Date / Time Penicillins Allergy Rash/Hives Verified 06/22/23 08:42 Exam Vital Signs Temp Pulse Resp BP Pulse Ox 06/22/23 08:44 97.9 F 79 16 192/77 96 Intake and Output 06/21/23 06/22/23 06/22/23 22:59 06:59 14:59 Other: Weight 65.771 kg Height 5 foot 1 inch, weight 145 pounds, BMI 27.4. This is a well-developed well-nourished white female who is alert and oriented times 3 in no acute distress. HEENT: Within normal limits. NECK: Supple without mass or thyromegaly. CHEST AND LUNGS: Clear to auscultation. HEART: Regular rate and rhythm. BREASTS: Are without mass or discharge. AXILLARY EXAM: Negative for adenopathy. BACK: Negative for CVA tenderness. ABDOMEN: Soft, nontender, without palpable masses. PELVIC EXAM: Normal external genitalia with mild to moderate atrophy. Cervix and vagina appear normal with mild to moderate atrophy. There is no unusual discharge. There is no evidence of prolapse. The uterus is midposition, nongravid size and nontender. There are no palpable adnexal masses or tenderness. RECTAL EXAM: Rectovaginal exam is negative for mass or tenderness and is negative for occult blood. EXTREMITIES: Nontender. IMPRESSION: 1. 73-year-old menopausal female with normal gynecologic exam. 2. History osteopenia. 3. History of chronic hypertension with elevated blood pressure. The patient states she did not take her blood sugar medication yet today. PLAN: 1. Pap smears have been discontinued. 2. Self breast awareness was discussed with the patient. We have also discussed symptoms associated with inflammatory breast cancer. 3. Screening mammogram will be done today. 4. We have discussed her elevated blood pressure. I have recommended that she check her own blood pressures on a regular basis at home and follow up with her PCP for a pressure elevations. 5. Osteoporosis prevention was discussed. I have stressed the importance of adequate calcium, vitamin D and regular exercise. Recommended amounts of calcium and vitamin D were also discussed. We will plan on repeating the bone density test in 1-2 years. 6.PHQ-2 questionaire was given and she scores 0. This is a negative screen for depression. 7. The patient was advised to return in 1-2 years for her well woman examination.
--- NOTE | 2023-06-23 07:35 | MM ---
Reason for Exam: Screening (asymptomatic). Last screening mammogram was performed 12 month(s) ago. Patient History: Menarche at age 11. Patient has no children. Postmenopausal. Patient used Estrogen for 1 year. Hormonal Contraceptives for 1 year, 10 months. Sister had breast cancer, age 61. Risk Values: Sherita 5 year model risk: 3.8%. NCI Lifetime model risk: 9.2%. Prior Study Comparison: 05/02/2019 Bilateral Screening Mammogram, [facility]. 06/11/2021 Bilateral Screening Mammogram, [facility]. 06/16/2022 Bilateral MG 3D screening mammo w/cad, [facility]. Tissue Density: There are scattered fibroglandular densities. Findings: Analyzed By CAD. There is no suspicious group of microcalcifications or new suspicious mass in either breast. Benign calcifications within the left breast appears stable, nodularity within the left breast. Overall Assessment: Benign, BI-RAD 2 Management: Screening Mammogram of both breasts in 1 year. A clinical breast exam by your physician is recommended on an annual basis and results should be correlated with mammographic findings. Note on Sherita scores and lifetime risk: 1. A Sherita score greater than 3% is considered moderate risk. If this is the case, consider specialist referral to assess eligibility for a risk reducing agent. If overall lifetime risk for the development of breast cancer is 20% or higher, the patient may qualify for future screening with alternating mammogram and breast MRI. Electronically signed and approved by: Guy Finley D.O.
== END ==
LOC: WWCWWP 08:34
PROVIDERS: ATTEND Obstetrics & Gynecology
DX: Z12.31 Encounter for screening mammogram for malignant neoplasm of breast (principal); E03.9 Hypothyroidism, unspecified; E78.5 Hyperlipidemia, unspecified; I10 Essential (primary) hypertension; I25.10 Atherosclerotic heart disease of native coronary artery without angina pectoris; M85.80 Other specified disorders of bone density and structure, unspecified site; Z78.0 Asymptomatic menopausal state; Z79.84 Long term (current) use of oral hypoglycemic drugs; Z79.890 Hormone replacement therapy; Z80.3 Family history of malignant neoplasm of breast; Z87.891 Personal history of nicotine dependence; Z88.0 Allergy status to penicillin; Z95.5 Presence of coronary angioplasty implant and graft
CPT/HCPCS: 77063; 77067

== ENCOUNTER 2024-06-13 14:43 | Emergency (ER) | payer MEDICARE ==
--- NOTE | 2024-06-13 15:22 | ED ---
Recheck HPI - General Chief Complaint: Recheck/Abnormal Lab/Rx Stated Complaint: Hypertension Time Seen by Provider: 06/13/24 15:18 Source: patient, RN notes reviewed, old records reviewed Mode of arrival: EMS Limitations: no limitations - Related Data Home Medications Medication Instructions Recorded Confirmed Krill Oil 500 mg PO DAILY 09/17/14 06/22/23 Levothyroxine Sodium [Synthroid] 75 mcg PO DAILY 09/17/14 06/22/23 Multivitamins, Thera [Multivitamin] 1 each PO DAILY 09/17/14 06/22/23 metFORMIN HCL [Glucophage] 1,000 mg PO BID 09/17/14 06/22/23 lisinopriL [Zestril] 20 mg PO BID 05/25/18 06/22/23 Ezetimibe [Zetia] 10 mg PO DAILY 06/11/21 06/22/23 Glimepiride [Amaryl] 2 mg PO AC-BRKFST 06/11/21 06/22/23 Ultra Eye Support 1 tab PO DAILY 06/11/21 06/22/23 Ascorbic Acid [Vitamin C] 500 mg PO DAILY 06/22/23 06/22/23 Cholecalciferol [Vitamin D3 (25 50 mcg PO DAILY 06/22/23 06/22/23 Mcg = 1000 Iu)] Previous Rx's Medication Instructions Recorded Aspirin 325 mg PO DAILY #100 tab 09/20/14 Atorvastatin [Lipitor] 80 mg PO HS #30 tab 09/20/14 Metoprolol Tartrate [Lopressor] 25 mg PO BID #60 tab 09/20/14 Allergies Allergy/AdvReac Type Severity Reaction Status Date / Time Penicillins Allergy Rash/Hives Verified 06/13/24 14:53 Review of Systems ROS Statement: Those systems with pertinent positive or pertinent negative responses have been documented in the HPI. ROS Other: All systems not noted in ROS Statement are negative. 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 History of Any Multi-Drug Resistant Organisms: None Reported Past Surgical History: Adenoidectomy, Tonsillectomy Additional Past Surgical History / Comment(s): THROIDECTOMY, DG CATARACTS SX , LASIK LT EYE. Cardiac stent placed in 2015. COLONOSCOPY 2018(next after 10yr) Past Anesthesia/Blood Transfusion Reactions: Previous Problems w/ Anesthesia Additional Past Anesthesia/Blood Transfusion Reaction / Comment(s): TOOK LONG TIME TO WAKE UP Past Psychological History: No Psychological Hx Reported Smoking Status: Former smoker Past Alcohol Use History: Rare Past Drug Use History: None Reported - Past Family History Father Family Medical History: Unable to Obtain Mother Family Medical History: Congestive Heart Failure (CHF), Myocardial Infarction ([place]) Sister(s) Family Medical History: Cancer Additional Family Medical History / Comment(s): Breast cancer. Brother(s) Family Medical History: Myocardial Infarction ([place]) General Exam Limitations: no limitations General appearance: alert, in no apparent distress Head exam: Present: atraumatic, normocephalic, normal inspection Eye exam: Present: normal appearance, PERRL, EOMI. Absent: scleral icterus, conjunctival injection, periorbital swelling ENT exam: Present: normal exam, mucous membranes moist Neck exam: Present: normal inspection. Absent: tenderness, meningismus, lymphadenopathy Respiratory exam: Present: normal lung sounds bilaterally. Absent: respiratory distress, wheezes, rales, rhonchi, stridor Cardiovascular Exam: Present: regular rate, normal rhythm, normal heart sounds. Absent: systolic murmur, diastolic murmur, rubs, gallop, clicks GI/Abdominal exam: Present: soft, normal bowel sounds. Absent: distended, tenderness, guarding, rebound, rigid Extremities exam: Present: normal inspection, full ROM, normal capillary refill. Absent: tenderness, pedal edema, joint swelling, calf tenderness Back exam: Present: normal inspection Neurological exam: Present: alert, oriented X3, CN II-XII intact Psychiatric exam: Present: normal affect, normal mood Skin exam: Present: warm, dry, intact, normal color. Absent: rash Course Vital Signs 06/13/24 06/13/24 14:46 15:59 Temperature 97.9 F Pulse Rate 67 67 Respiratory 14 16 Rate Blood Pressure 226/99 194/83 O2 Sat by Pulse 95 96 Oximetry - Reevaluation(s) Reevaluation #1: 06/13/24 16:38 Medical records reviewed Reevaluation #4: Was pt. sent in by a medical professional or institution (Dr., PA, SODA DRY HOUSE OPERATOR, urgent care, hospital, or halfway...) When possible be specific @ -no Did you speak to anyone other than the patient for history (EMS, parent, family, police, friend...)? What history was obtained from this source @ -no Did you review nursing and triage notes (agree or disagree)? Why? @ -agree Are old charts reviewed (outside hosp., previous admission, EMS record, old EKG, old radiological studies, urgent care reports/EKG's, halfway records)? Report findings @ -yes Differential Diagnosis (chest pain, altered mental status, abdominal pain women, abdominal pain men, vaginal bleeding, weakness, fever, dyspnea, syncope, headache, dizziness, GI bleed, back pain, seizure, CVA, palpatations, mental health, musculoskeletal)? @ -prior EKG interpreted by me (3pts min.). @ -yes X-rays interpreted by me (1pt min.). @ -yes negative for acute disease CT interpreted by me (1pt min.). @ -no U/S interpreted by me (1pt. min.). @ -no What testing was considered but not performed or refused? (CT, X-rays, U/S, labs)? Why? @ -none What meds were considered but not given or refused? Why? @ -none Did you discuss the management of the patient with other professionals (PIYUSH braswell i.e., Dr., SODA DRY HOUSE OPERATOR, lab, RT, psych nurse, social services analyst, oil rigger, teacher, credit compliance officer, case assistant)? Give summary @ -no Was smoking cessation discussed for >3mins.? @ -no Was critical care preformed (if so, how long)? @ -no Were there social determinants of health that impacted care today? How? (Homelessness, low income, unemployed, alcoholism, drug addiction, transportation, low edu. Level, literacy, decrease access to med. care, mcc, rehab)? @ -none Was there de-escalation of care discussed even if they declined (Discuss DNR or withdrawal of care, Hospice)? DNR status @ -no What co-morbidities impacted this encounter? (DM, HTN, Smoking, COPD, CAD, Cancer, CVA, ARF, Chemo, Hep., AIDS, mental health diagnosis, sleep apnea, morbid obesity)? @ -none Was patient admitted / discharged? Hospital course, mention meds given and route, prescriptions, significant lab abnormalities, going to OR and other pertinent info. @ - Undiagnosed new problem with uncertain prognosis? @ -no Drug Therapy requiring intensive monitoring for toxicity (Heparin, Nitro, Insulin, Cardizem)? @ -no Were any procedures done? @ -no Diagnosis/symptom? @ - Acute, or Chronic, or Acute on Chronic? @ -Acute Uncomplicated (without systemic symptoms) or Complicated (systemic symptoms)? @ -Complicated Side effects of treatment? @ -no Exacerbation, Progression, or Severe Exacerbation? @ -exacerbation Poses a threat to life or bodily function? How? (Chest pain, [place], [place], pneumonia, PE, COPD, DKA, ARF, appy, cholecystitis, CVA, Diverticulitis, Homicidal, Suicidal, threat to staff... and all critical care pts) @ -yes Medical Decision Making - Lab Data Result diagrams: 06/13/24 15:16 06/13/24 15:16 Lab Results 06/13/24 06/13/24 06/13/24 Range/Units 15:05 15:16 15:16 WBC 7.8 (3.8-10.6) k/uL RBC 4.94 (3.80-5.40) m/uL Hgb 15.9 (11.4-16.0) gm/dL Hct 45.6 (34.0-46.0) % MCV 92.4 (80.0-100.0) fL MCH 32.1 (25.0-35.0) pg MCHC 34.8 (31.0-37.0) g/dL RDW 12.6 (11.5-15.5) % Plt Count 355 (150-450) k/uL MPV 9.1 Neutrophils % 70 % Lymphocytes % 21 % Monocytes % 5 % Eosinophils % 2 % Basophils % 1 % Neutrophils # 5.5 (1.3-7.7) k/uL Lymphocytes # 1.7 (1.0-4.8) k/uL Monocytes # 0.4 (0-1.0) k/uL Eosinophils # 0.2 (0-0.7) k/uL Basophils # 0.1 (0-0.2) k/uL PT 9.8 L (10.0-12.5) sec INR 0.9 (<1.2) APTT 22.7 (22.0-30.0) sec Sodium (137-145) mmol/L Potassium (3.5-5.1) mmol/L Chloride (98-107) mmol/L Carbon Dioxide (22-30) mmol/L Anion Gap mmol/L BUN (7-17) mg/dL Creatinine (0.52-1.04) mg/dL Est GFR (CKD-EPI)AfAm (>60 ml/min/1.73 sqM) Est GFR (CKD-EPI)NonAf (>60 ml/min/1.73 sqM) Glucose (74-99) mg/dL Calcium (8.4-10.2) mg/dL Magnesium (1.6-2.3) mg/dL Total Bilirubin (0.2-1.3) mg/dL AST (14-36) U/L ALT (4-34) U/L Alkaline Phosphatase (38-126) U/L Troponin I (0.000-0.034) ng/mL Total Protein (6.3-8.2) g/dL Albumin (3.5-5.0) g/dL Urine Color Colorless Urine Appearance Clear (Clear) Urine pH 7.0 (5.0-8.0) Ur Specific [place] 1.012 (1.001-1.035) Urine Protein Trace H (Negative) Urine Glucose (UA) 4+ H (Negative) Urine Ketones Negative (Negative) Urine Blood Negative (Negative) Urine Nitrite Negative (Negative) Urine Bilirubin Negative (Negative) Urine Urobilinogen <2.0 (<2.0) mg/dL Ur Leukocyte Esterase Negative (Negative) 06/13/24 06/13/24 Range/Units 15:16 15:16 WBC (3.8-10.6) k/uL RBC (3.80-5.40) m/uL Hgb (11.4-16.0) gm/dL Hct (34.0-46.0) % MCV (80.0-100.0) fL MCH (25.0-35.0) pg MCHC (31.0-37.0) g/dL RDW (11.5-15.5) % Plt Count (150-450) k/uL MPV Neutrophils % % Lymphocytes % % Monocytes % % Eosinophils % % Basophils % % Neutrophils # (1.3-7.7) k/uL Lymphocytes # (1.0-4.8) k/uL Monocytes # (0-1.0) k/uL Eosinophils # (0-0.7) k/uL Basophils # (0-0.2) k/uL PT (10.0-12.5) sec INR (<1.2) APTT (22.0-30.0) sec Sodium 135 L (137-145) mmol/L Potassium 4.1 (3.5-5.1) mmol/L Chloride 95 L (98-107) mmol/L Carbon Dioxide 33 H (22-30) mmol/L Anion Gap 7 mmol/L BUN 19 H (7-17) mg/dL Creatinine 0.81 (0.52-1.04) mg/dL Est GFR (CKD-EPI)AfAm 83 (>60 ml/min/1.73 sqM) Est GFR (CKD-EPI)NonAf 72 (>60 ml/min/1.73 sqM) Glucose 434 H (74-99) mg/dL Calcium 9.2 (8.4-10.2) mg/dL Magnesium 2.0 (1.6-2.3) mg/dL Total Bilirubin 0.8 (0.2-1.3) mg/dL AST 28 (14-36) U/L ALT 26 (4-34) U/L Alkaline Phosphatase 114 (38-126) U/L Troponin I <0.012 (0.000-0.034) ng/mL Total Protein 7.2 (6.3-8.2) g/dL Albumin 4.4 (3.5-5.0) g/dL Urine Color Urine Appearance (Clear) Urine pH (5.0-8.0) Ur Specific [place] (1.001-1.035) Urine Protein (Negative) Urine Glucose (UA) (Negative) Urine Ketones (Negative) Urine Blood (Negative) Urine Nitrite (Negative) Urine Bilirubin (Negative) Urine Urobilinogen (<2.0) mg/dL Ur Leukocyte Esterase (Negative) - EKG Data -: EKG Interpreted by Me (EKG sinus 74 OK 175 QRS 89 QTc 404) Disposition Clinical Impression: Hypertension Disposition: HOME SELF-CARE Condition: Good Instructions (If sedation given, give patient instructions): Hypertension (ED) Is patient prescribed a controlled substance at d/c from ED?: No Referrals: Juan R Nugent MD [Primary Care Provider] - 1-2 days Time of Disposition: 17:00
[2024-06-13 15:41] LABS: INR 0.9 (<1.2); Partial Thromboplastin Time 22.7 sec (22.0-30.0); Prothrombin Time 9.8 sec (10.0-12.5)
[2024-06-13 15:42] LABS: ALT 26 U/L (4-34); AST 28 U/L (14-36); African American GFR (CKD) 83 (>60 ml/min/1.73 sqM); Albumin 4.4 g/dL (3.5-5.0); Alkaline Phosphatase 114 U/L (38-126); Anion Gap 7 mmol/L; Blood Urea Nitrogen 19 mg/dL (7-17); Calcium 9.2 mg/dL (8.4-10.2); Carbon Dioxide 33 mmol/L (22-30); Chloride 95 mmol/L (98-107); Glucose 434 mg/dL (74-99); Non-African American GFR(CKD) 72 (>60 ml/min/1.73 sqM); Potassium 4.1 mmol/L (3.5-5.1); Sodium 135 mmol/L (137-145); Total Bilirubin 0.8 mg/dL (0.2-1.3); Total Protein 7.2 g/dL (6.3-8.2)
[2024-06-13 15:48] LABS: Basophils # (A) 0.1 k/uL (0-0.2); Basophils % (A) 1 %; Eosinophils # (A) 0.2 k/uL (0-0.7); Eosinophils % (A) 2 %; HCT 45.6 % (34.0-46.0); HGB 15.9 gm/dL (11.4-16.0); Lymphocytes # (A) 1.7 k/uL (1.0-4.8); Lymphocytes % (A) 21 %; MCH 32.1 pg (25.0-35.0); MCHC 34.8 g/dL (31.0-37.0); MCV 92.4 fL (80.0-100.0); Mean Platelet Volume 9.1; Monocytes # (A) 0.4 k/uL (0-1.0); Monocytes % (A) 5 %; Neutrophils # (A) 5.5 k/uL (1.3-7.7); Neutrophils % (A) 70 %; Platelet Count 355 k/uL (150-450); RBC 4.94 m/uL (3.80-5.40); RDW 12.6 % (11.5-15.5); WBC 7.8 k/uL (3.8-10.6)
[2024-06-13 16:26] LABS: Appearance,Urine Clear (Clear); Bilirubin,Urine Negative (Negative); Blood,Urine Negative (Negative); Color,Urine Colorless; Glucose,Urine (UA) 4+ (Negative); Ketones,Urine Negative (Negative); Leukocyte Esterase,Urine Negative (Negative); Nitrite,Urine Negative (Negative); Protein,Urine Trace (Negative); Specific Gravity,Urine 1.012 (1.001-1.035); Urobilinogen,Urine <2.0 mg/dL (<2.0)
[2024-06-13] MEDS: lisinopriL 20 MG TAB PO STA (17:02)
[2024-06-13] MEDS: LABETALOL 5 MG/ML VIAL MDV IVP STA (17:04)
[2024-06-13 17:08] VITALS: BP 150/79
[2024-06-13 17:15] VITALS: PULSE 77; RESP 14; TEMP 98.3
== END 2024-06-13 17:12 | disposition home or self-care (01) ==
LOC: EC 14:43
CPT/HCPCS: 36415; 80053; 81003; 83735; 84484; 85025; 85610; 85730; 93005; 96374; 99284

== ENCOUNTER → 2024-06-27 | Outpatient (CLI) | payer MEDICARE ==
[2024-06-27 14:13] VITALS: BP 193/67; PULSE 63; RESP 16; TEMP 98.1
--- NOTE | 2024-06-27 14:34 | P.HPOB ---
History of Present Illness H&P Date: 06/27/24 Chief Complaint: The patient is here for her routine gynecologic exam and ma mmogram. This is a 74-year-old G0 with an LMP of 1993. The patient is without gynecologic complaints and denies any postmenopausal bleeding. Review of Systems The patient has lost 7 pounds over the last year. She denies respiratory, cardiac, or G.I. problems. 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 History of Any Multi-Drug Resistant Organisms: None Reported Past Surgical History: Adenoidectomy, Tonsillectomy Additional Past Surgical History / Comment(s): THROIDECTOMY, DG CATARACTS SX , LASIK LT EYE. Cardiac stent placed in 2014. COLONOSCOPY 2018(next after 10yr) Past Anesthesia/Blood Transfusion Reactions: Previous Problems w/ Anesthesia Additional Past Anesthesia/Blood Transfusion Reaction / Comment(s): TOOK LONG TIME TO WAKE UP Past Psychological History: No Psychological Hx Reported Smoking Status: Former smoker Past Alcohol Use History: Rare (0-2 drinks per year.) Additional Past Alcohol Use History / Comment(s): STARTED SMOKING AT AGE 18 QUIT AGE 44 USED TO SMOKE 1 PPD Past Drug Use History: None Reported Additional History: She has been a since 2019. She is not sexually active. 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 - Past Family History Father Family Medical History: Unable to Obtain Mother Family Medical History: Congestive Heart Failure (CHF), Myocardial Infarction ([place]) Sister(s) Family Medical History: Cancer Additional Family Medical History / Comment(s): Breast cancer and cervical c ancer. Brother(s) Family Medical History: Myocardial Infarction ([place]) Medications and Allergies Home Medications Medication Instructions Recorded Confirmed Type Krill Oil 500 mg PO DAILY 09/17/14 06/27/24 History Levothyroxine Sodium [Synthroid] 75 mcg PO DAILY 09/17/14 06/27/24 History Multivitamins, Thera [Multivitamin] 1 each PO DAILY 09/17/14 06/27/24 History metFORMIN HCL [Glucophage] 1,000 mg PO BID 09/17/14 06/27/24 History Aspirin 325 mg PO DAILY #100 tab 09/20/14 06/27/24 Rx Atorvastatin [Lipitor] 80 mg PO HS #30 tab 09/20/14 06/27/24 Rx Ezetimibe [Zetia] 10 mg PO DAILY 06/11/21 06/27/24 History Glimepiride [Amaryl] 2 mg PO AC-BRKFST 06/11/21 06/27/24 History Ultra Eye Support 1 tab PO DAILY 06/11/21 06/27/24 History Ascorbic Acid [Vitamin C] 500 mg PO DAILY 06/22/23 06/27/24 History Cholecalciferol [Vitamin D3 (25 50 mcg PO DAILY 06/22/23 06/27/24 History Mcg = 1000 Iu)] Metoprolol Tartrate [Lopressor] 50 mg PO BID #120 tab 06/13/24 06/27/24 Rx lisinopriL [Zestril] 20 mg PO BID #60 tab 06/13/24 06/27/24 Rx Calcium Carb/Magnesium Hydrox 1 tab PO DAILY 06/27/24 06/27/24 History [Rolaids Ext Str 675-135 mg Chw] hydroCHLOROthiazide 25 mcg PO DAILY 06/27/24 06/27/24 History Allergies Allergy/AdvReac Type Severity Reaction Status Date / Time Penicillins Allergy Rash/Hives Verified 06/27/24 14:07 Exam Vital Signs Temp Pulse Resp BP Pulse Ox 06/27/24 14:12 98.1 F 63 16 193/67 97 Intake and Output 06/26/24 06/27/24 06/27/24 22:59 06:59 14:59 Other: Weight 62.596 kg Height 5 feet 2 inches, weight 138 pounds, BMI 25.2. This is a well-developed well-nourished white female who is alert and oriented times 3 in no acute distress. HEENT: Within normal limits. NECK: Supple without mass or thyromegaly. CHEST AND LUNGS: Clear to auscultation. HEART: Regular rate and rhythm. BREASTS: Are without mass or discharge. AXILLARY EXAM: Negative for adenopathy. BACK: Negative for CVA tenderness. ABDOMEN: Soft, nontender, without palpable masses. PELVIC EXAM: Normal external genitalia with mild to moderate atrophy. Cervix and vagina appear normal with mild to moderate atrophy. There is no unusual discharge. There is no evidence of prolapse. The uterus is midposition, nongravid size and nontender. There are no palpable adnexal masses or tenderness. RECTAL EXAM: Rectovaginal exam is negative for mass or tenderness and is negative for occult blood. EXTREMITIES: Nontender. IMPRESSION: 1. 74-year-old menopausal female with normal gynecologic exam. 2. History of osteopenia 3. Elevated blood pressure with history of chronic hypertension. PLAN: 1. Pap smears have been discontinued. 2. Self breast awareness was discussed with the patient. We have also discussed symptoms associated with inflammatory breast cancer. 3. Screening mammogram will be done today. 4. Osteoporosis prevention was discussed. I have stressed the importance of adequate calcium, vitamin D and regular exercise. Recommended amounts of calcium and vitamin D were also discussed. Bone density testing will be done today. 5. We have discussed her elevated blood pressure. She was recently added on hydrochlorothiazide in addition to her 2 other blood pressure medications. I have recommended that she check her own blood pressures at home on a regular basis since she does have a blood pressure cuff. She will follow-up with her P CP and dental hygiene professor for blood pressure elevations. 6. She was advised to return in one year for her annual well woman exam.
--- NOTE | 2024-06-28 07:48 | MM ---
Reason for Exam: Screening (asymptomatic). Last mammogram was performed 1 year(s) and 1 month(s) ago. Patient History: Menarche at age 11. Patient has no children. Postmenopausal. Patient used Estrogen for 1 year. Hormonal Contraceptives for 1 year, 10 months. Sister had breast cancer, age 61. Risk Values: Sherita 5 year model risk: 3.8%. NCI Lifetime model risk: 8.6%. Prior Study Comparison: 06/11/2021 Bilateral Screening Mammogram, [facility]. 06/16/2022 Bilateral MG 3D screening mammo w/cad, [facility]. 06/22/2023 Bilateral MG 3D screening mammo w/cad, [facility]. Tissue Density: The breasts are heterogeneously dense, which may obscure small masses. Findings: Analyzed By CAD. There is no suspicious group of microcalcifications or new suspicious mass in either breast. Stable chronic nodularity left breast dating back to multiple prior exams. Benign-appearing calcifications. Overall Assessment: Benign, BI-RAD 2 Management: Screening Mammogram of both breasts in 1 year. . Patient should continue monthly self-breast exams. A clinical breast exam by your physician is recommended on an annual basis. This exam should not preclude additional follow-up of suspicious palpable abnormalities. Note on Sherita scores and lifetime risk: 1. A Sherita score greater than 3% is considered moderate risk. If this is the case, consider specialist referral to assess eligibility for a risk reducing agent. 2. If overall lifetime risk for the development of breast cancer is 20% or higher, the patient may qualify for future screening with alternating mammogram and breast MRI. [facility], , 06/28/2024 7:45 AM. Electronically signed and approved by: Luke Gomez M.D. Radiologis
--- NOTE | 2024-06-28 21:30 | BD ---
EXAMINATION TYPE: Axial Bone Density DATE OF EXAM: 06/27/2024 CLINICAL HISTORY: 74 years old Female. ICD-10 CODE: Z780 POST KARINA WITHOUT HRT , Z78.0 Height: 62 Weight: 147.0 FRAX RISK QUESTIONS: Alcohol (3 or more units per day): no Family History (Parent hip fracture): no Glucocorticoids (More than 3mos): no (Ex: prednisone, prednisolone, methylprednisolone, dexamethasone, and hydrocortisone). History of Fracture in Adulthood: no Secondary Osteoporosis: 1. Type 1 Diabetes: no 2. Hyperthyroidism: no 3. Menopause before 45: yes 4. Malnutrition: no 5. Chronic liver disease: no Rheumatoid Arthritis: no Current Tobacco Use: no RISK FACTORS HISTORY OF: Surgery to Spine/Hip(right/left)/Wrist (right/left): no MEDICATIONS: Thyroid Medications: levothyroxine How Lon EXAM MEASUREMENTS: Bone mineral densitometry was performed using the [employer]ara System. Bone mineral density as measured about the Lumbar spine is: ----- L1-L4(G/cm2): 1.372 T Score Values are as follows: ----- L1: -0.5 ----- L2: 1.0 ----- L3: 2.8 ----- L4: 2.6 ----- L1-L4: 1.6 Z Score Values are as follows: ----- L1: 1.2 ----- L2: 2.6 ----- L3: 4.5 ----- L4: 4.3 ----- L1-L4: 3.3 Bone mineral density has: decreased -2.4 % since study of: 06.16.2022 Bone mineral density about the R hip (g/cm2): 0.839 Bone mineral density about the L hip (g/cm2): 0.847 T Score values are as follows: -----R Neck: -1.7 -----L Neck: -2.0 -----R Total: -1.3 -----L Total: -1.3 Z Score values are as follows: -----R Neck: 0.1 -----L Neck: -0.1 -----R Total: 0.3 -----L Total: 0.4 Bone mineral density has: decreased -6.9 % since study of: 06.16.2022 FRAX%s: The graph provided illustrates a 13.0% chance for a major osteoporotic fx and a 3.2% chance f or the hips probability for fx in 10 years time. IMPRESSION: Osteopenia (T Score between -2.5 and -1). There is slightly increased risk of fracture and the patient may be considered for treatment. Re-Screen 2-5 years. NOTE: T-SCORE=SD OF THE YOUNG ADULT MEAN. [facility], , 06/28/2024 9:28 PM
== END ==
LOC: WWCWWP 13:45
PROVIDERS: ATTEND Obstetrics & Gynecology
DX: Z12.31 Encounter for screening mammogram for malignant neoplasm of breast (principal); R92.333 Mammographic heterogeneous density, bilateral breasts; R92.1 Mammographic calcification found on diagnostic imaging of breast; I10 Essential (primary) hypertension; M81.8 Other osteoporosis without current pathological fracture; Z78.0 Asymptomatic menopausal state; Z80.3 Family history of malignant neoplasm of breast; Z87.891 Personal history of nicotine dependence; Z88.0 Allergy status to penicillin; Z79.899 Other long term (current) drug therapy
CPT/HCPCS: 77063; 77067; 77080

== ENCOUNTER → 2024-07-17 | Outpatient (CLI) | payer MEDICARE ==
[2024-07-18 02:43] LABS: BUN/Creat Ratio 17.45 Ratio (12.00-20.00); Blood Urea Nitrogen 19.2 mg/dL (9.0-27.0); Carbon Dioxide 28.4 mmol/L (21.6-31.8); Chloride 97 mmol/L (96-109); Glucose 534 mg/dL (70-110); Potassium 4.2 mmol/L (3.5-5.5); Sodium 136 mmol/L (135-145)
== END | disposition home or self-care (01) ==
LOC: LABWHC1 16:19
PROVIDERS: ATTEND Nurse Practitioner Adult Health
DX: I10 Essential (primary) hypertension (principal)
CPT/HCPCS: 36415; 80048

== ENCOUNTER → 2024-11-30 | Outpatient (CLI) | payer MEDICARE ==
[2024-11-30 15:38] LABS: ALT 29 U/L (8-44); AST 30 U/L (13-35); Albumin/Globulin Ratio 1.74 Ratio (1.60-3.17); Alkaline Phosphatase 65 U/L (41-126); BUN/Creat Ratio 16.11 Ratio (12.00-20.00); Blood Urea Nitrogen 14.5 mg/dL (9.0-27.0); Calcium 9.6 mg/dL (8.7-10.3); Carbon Dioxide 25.6 mmol/L (21.6-31.8); Chloride 100 mmol/L (96-109); Chol/HDL Ratio 2.46 Ratio; Globulin 2.3 g/dL (1.6-3.3); Glucose 163 mg/dL (70-110); LDL Cholesterol,Calculated 51.6 mg/dL (0.0-131.0); Potassium 4.9 mmol/L (3.5-5.5); Sodium 142 mmol/L (135-145); Total Bilirubin 0.5 mg/dL (0.3-1.2); Total Protein 6.3 g/dL (6.2-8.2)
== END | disposition home or self-care (01) ==
LOC: LABWHC1 07:35
PROVIDERS: ATTEND Internal Medicine Interventional Cardiology
DX: I10 Essential (primary) hypertension (principal); E78.2 Mixed hyperlipidemia
CPT/HCPCS: 36415; 80053; 80061

== ENCOUNTER → 2025-01-05 | Outpatient (CLI) | payer MEDICARE ==
[2025-01-05 18:55] LABS: Blood Urea Nitrogen 23.8 mg/dL (9.0-27.0); Glucose 333 mg/dL (70-110)
[2025-01-05 18:56] LABS: Calcium 9.6 mg/dL (8.7-10.3); Carbon Dioxide 27.4 mmol/L (21.6-31.8); Chloride 98 mmol/L (96-109); Potassium 4.8 mmol/L (3.5-5.5); Sodium 138 mmol/L (135-145)
[2025-01-05 18:58] LABS: NT-Pro-B-Type Natriuretic Pept 513 pg/mL (0-125)
== END | disposition home or self-care (01) ==
LOC: LABWHC1 14:21
DX: I25.5 Ischemic cardiomyopathy (principal); E11.9 Type 2 diabetes mellitus without complications; R60.0 Localized edema
CPT/HCPCS: 36415; 80048; 83036; 83880